=== PATIENT | male | born 1975 | race Caucasian/White ===

== ENCOUNTER 2023-11-20 09:23 | Emergency (ER) | payer BC, SELFPAY ==
[2023-11-20 09:37] VITALS: BP 151/99
--- NOTE | 2023-11-20 10:03 | EDRN ---
Meenakshi YANG in room w/ pt at this time.
[2023-11-20 10:04] VITALS: BP 134/104; BMI 19.5
[2023-11-20 10:09] LABS: % Basophils 0.6 % (0-2); % Eosinophils 0.1 % (0-6); % Immature Granulocytes 0.2 % (0-0.5); % Lymphocytes 14.1 % (20.5-51.1); % Monocytes 7.2 % (1.7-9.3); % Neutrophils 77.8 % (42.2-75.2); Absolute Basophils 0.1 10^3/uL (0-0.2); Absolute Lymphocytes 1.7 10^3/uL (1.2-3.4); Absolute Monocytes 0.9 10^3/uL (0.1-0.6); Absolute Neutrophils 9.2 10^3/uL (1.4-6.5); Hematocrit 50.7 % (39.0-52.0); Hemoglobin 17.6 g/dL (13.0-18.0); Mean Corp Hgb Conc. 34.7 g/dL (33.0-37.0); Mean Corpuscular Hgb 30.5 pg (27.0-31.0); Mean Corpuscular Volume 87.9 fL (80.0-94.0); Nucleated Red Blood Cells % 0 % (-); Platelet Count 292 10^3/uL (130-400); Red Blood Cell Count 5.77 10^6/uL (4.70-6.10); Red Cell Dist. Width 12.1 % (11.5-14.5); White Blood Cell Count 11.9 10^3/uL (4.8-10.8)
[2023-11-20 10:21] LABS: ALT (SGPT) 18 U/L (0-50); AST (SGOT) 21 U/L (17-59); Albumin 5.1 g/dl (3.5-5.0); Alkaline Phosphatase 102 U/L (38-126); Blood Urea Nitrogen 13 mg/dl (9-20); Calcium 9.4 mg/dl (8.4-10.2); Carbon Dioxide 26 mmol/L (22-30); Chloride 102 mmol/L (98-107); Estimated Creatinine Clearance 121 ml/min; Glucose 135 mg/dl (70-99); Potassium 4.1 mmol/L (3.5-5.1); Sodium 135 mmol/L (135-145); Total Bilirubin 2.8 mg/dl (0.2-1.3); Total Protein 8.1 g/dl (6.3-8.2); eGFR > 60.00
--- NOTE | 2023-11-20 10:24 | ED.GENMED ---
History of Present Illness
General
Chief Complaint: Rectal Bleeding
Source: patient
Exam Limitations: none
Time Seen by Provider: 11/20/23 09:46
Travel History
Have you had any contact with someone who has COVID-19?: No
Do you have any symptoms of coronavirus? Fever > 100 degrees, chills, cough, shortness of breath, sore throat, loss of taste or smell, muscle aches, or headache?: No
History of Present Illness
History of Present Illness:
48-year-old male pack-a-day smoker presents with hemoptysis starting 3 days ago. He states he was sneezing and coughing and coughed up several times large globs of red blood. This has slowed down since then. He thinks he still coughing up some
blood but swallows it. He now notes dark stools. He denies abdominal pain chest pain or shortness of breath. No recent travel or surgery. He does not take any medications however have his medical marijuana card. No allergies to medications. No
other complaints at this time
Phy Exam
Physical Exam
Physical Exam:
General: Well-appearing male no acute respiratory distress HEENT: Normocephalic atraumatic posterior pharynx without erythema neck is supple
Heart: Regular rate and rhythm no murmurs
Lungs: Clear to auscultation bilaterally no wheezing
Abdomen soft nontender nondistended no guarding rebound normal bowel sounds
Extremities: No cyanosis or edema
Course
Orders/Labs/Results
Orders:
Orders
11/20/23 09:47
Cardiac Monitoring- Treatment ONCE
IV Insert/Care/Rem.- Treatment PRN
11/20/23 10:01
Type+Screen Urgent
Complete Blood Count/With Diff Urgent
Comprehensive Metabolic Panel Urgent
11/20/23 10:06
CR Chest - 2 Views Urgent
Comment:
Reason For Exam: hemoptysis
11/20/23 11:01
0.9% Sodium Chloride 1000 ml [Nss] 1,000 ml IV BOLUS
11/20/23 11:02
CT Chest Pe Study Urgent
Comment:
Reason For Exam: hemoptysis, tachycardia
Abnormal Lab Results
11/20/23
10:01
WBC 11.9 H 10^3/uL
(4.8-10.8)
Absolute Neuts (auto) 9.2 H 10^3/uL
(1.4-6.5)
Absolute Monos (auto) 0.9 H 10^3/uL
(0.1-0.6)
Neutrophils % 77.8 H %
(42.2-75.2)
Lymphocytes % 14.1 L %
(20.5-51.1)
Glucose 135 H mg/dl
(70-99)
Total Bilirubin 2.8 H mg/dl
(0.2-1.3)
Albumin 5.1 H g/dl
(3.5-5.0)
11/20/23 10:01
11/20/23 10:01
Vital Signs
Initial and Last Documented VS:
Initial Vital Signs
Temp Pulse Resp BP Pulse Ox
98.0 F 117 18 151/99 97
11/20/23 09:37 11/20/23 09:37 11/20/23 09:37 11/20/23 09:37 11/20/23 09:37
Last Documented Vital Signs
Temp Pulse Resp BP Pulse Ox
98.0 F 76 17 117/81 100
11/20/23 09:37 11/20/23 12:52 11/20/23 12:52 11/20/23 12:52 11/20/23 12:52
MDM/Problems Addressed
Differential Diagnosis Includes:
Hemoptysis. I suspect black-colored stool is a product of swallowing his blood. There is no vomiting that he described. No recent travel or surgery. Risk of PE is low. Will check chest x-ray and labs.
*Critical Care Note
Total Time (30-74mins, 75-104mins- exclusive of procedures): Not Applicable
Update Note
Update Note:
CT was eventually performed secondary to tachycardia and hemoptysis. This is a PE study. There is no pulmonary embolism. There is pneumonia in the right upper lobe. This measures 7 and half centimeters in diameter. Will cover for
community-acquired pneumonia but will advise he follow-up with pulmonology for further evaluation. He is not hypoxic. On exam he is not tachycardic. No respiratory distress otherwise and no indication for patient
ED Attending Note
-
Portions of this chart may have been created with voice recognition software.� Occasional wrong word or��sound alike� substitutions may have occurred due to the inherent limitations of voice recognition software.
Discharge Plan
Departure
Patient Disposition: Home (Routine Discharge)
Date of Disposition: 11/20/23
Time of Disposition: 13:18
Patient with high blood pressure during this ER visit?: No
Discharge Problem:
Pneumonia
Instructions: Pneumonia, Adult (DC)
Prescriptions:
New
amoxicillin-pot clavulanate 875-125 mg tablet
1 tab PO BID Qty: 14 0RF
azithromycin [Zithromax] 250 mg tablet
250 mg PO DAILY Qty: 6 0RF
No Action
Medical [place]
2 puff inhalation BIDPRN PRN (Reason: anxiety/stress)
Referrals:
To Rees MD [Active] -
UNKNOWN - PT DOES,NOT KNOW [Family Provider] -
Activity Restrictions/Additional Instructions:
Take antibiotics as directed. Please follow up with Pulmonology for further evaluation. Return for worsening symptoms otherwise.
Interventions
Interventions:
*Risk Screen - Suicide Last Done: 11/20/23 10:04
*General Assessment Last Done: 11/20/23 10:04
*Neglect/Abuse Screening Last Done: 11/20/23 10:04
ED- Fall Risk Assessment Last Done: 11/20/23 10:04
*ED COVID-19 Vaccine History Last Done: 11/20/23 10:04
[facility] Assessment Last Done: 11/20/23 10:04
ED- Cardiac Assessment Last Done: 11/20/23 10:04
ED- Pulmonary Assessment Last Done: 11/20/23 10:04
[2023-11-20 11:00] VITALS: BP 124/70
[2023-11-20] MEDS: NSS 1000 IV (11:54)
[2023-11-20 12:52] VITALS: BP 117/81
[2023-11-20 13:00] VITALS: BP 106/73
--- NOTE | 2023-11-20 13:18 | EDRN ---
Meenakshi YANG in room w/pt at this time.
== END 2023-11-20 13:45 | disposition home or self-care (01) ==
LOC: EMR 09:23
PROVIDERS: Physician Assistant; EMERGENCY PHYSICIAN Emergency Medicine
DX: J18.9 Pneumonia, unspecified organism (principal); F17.200 Nicotine dependence, unspecified, uncomplicated
CPT/HCPCS: 99285; 96360; 71046; 71275; 80053; 85025; 86850; 86900; 86901; Q9967

== ENCOUNTER → 2024-04-04 08:36 | Outpatient (REF) | payer BC, SELFPAY | LOC: HWRAD 08:36 | PROVIDERS: ATTENDING PHYSICIAN Internal Medicine Critical Care Medicine; FAMILY PHYSICIAN Family Medicine | DX: R04.2 Hemoptysis (principal); Z87.01 Personal history of pneumonia (recurrent) | CPT/HCPCS: 71046; 71250 ==